=== PATIENT | male | born 1945 | race Caucasian/White ===

== ENCOUNTER 2018-02-26 12:13 | Emergency (ER) | payer MEDICARE, OTHER, BC ==
[2018-02-26] MEDS: KETOROLAC 15 MG INJ IM (13:24)
== END 2018-02-26 16:49 | disposition home or self-care (01) ==
LOC: E/R 12:13
DX: M54.41 Lumbago with sciatica, right side (principal); I10 Essential (primary) hypertension; Z85.828 Personal history of other malignant neoplasm of skin
CPT/HCPCS: 96372; 99284-25